=== PATIENT | male | born 1960 | race Caucasian/White ===

== ENCOUNTER → 2017-09-07 | Outpatient (CLI) | payer OTHER ==
[~2017-09-07] MED LIST: ACET-2031 PO; CEP500 PO; CHOLESTEROL MED PO; ENOX100D7 SQ; FISH OIL1 CAP PO; HTN MED PO; IBU600 PO; LOR5 PO; LOSA25TA46 PO; MET500 PO; METF-420 PO; MON10 PO; MONT4TAB PO; MULT-1335 PO; SIM10 PO; SINGULAIR PO; SUMA50TA34 PO; UBID100C48 PO; UBID10CA8 PO; UBID50CA21 PO; UBIQ100C3 PO; VALS1TAB63 PO; VALS80TA7 PO; VIT C; WAR5 PO
== END ==
LOC: LAB 09:43
PROVIDERS: ATTEND Family Medicine
DX: R80.9 Proteinuria, unspecified (principal)
CPT/HCPCS: 36415; 82977; 84156

== ENCOUNTER 2018-02-17 08:43 | Emergency (ER) | payer OTHER ==
[~2018-02-17 08:43] MED LIST changes: -METF-420 PO; +METF-452 PO; -VALS80TA7 PO; +VALS80TA8 PO
--- NOTE | 2018-02-17 08:47 | ER Report ---
History and Physical Time Seen By MD: 08:47 HPI/ROS CHIEF COMPLAINT: Elevated blood sugar, hematuria HISTORY OF PRESENT ILLNESS: Patient is a 57-year-old male who presents to the emergency department for complaint of elevated blood sugars in the 300 range as well as red colored urine. Patient was with his over this past week and [place] the [place] near [place], patient admitted on Sunday he was having increasing frequency of urination, he did not notice any abnormal change in color but also was not being observant of this. He denied any dysuria or abdominal pain or flank pain. There is also no history of fevers. Over Sunday and the frequency seemed to improve they arrived back to [place] on Sunday and they noticed that since that time his urine has been a dark red color. Again no associated dysuria or flank pain. Patient denies having similar symptoms in the past. They did do a lot of climbing and hiking. He isn't denies any chest pain or shortness of breath. He denies any headache or neck pain. Denies any recent sore throats or treatment for strep throat. REVIEW OF SYSTEMS: Constitutional: No fever, no chills. Eyes: No discharge. ENT: No sore throat. Cardiovascular: No chest pain, no palpitations. Respiratory: No cough, no shortness of breath. Gastrointestinal: No abdominal pain, no vomiting. No flank pain Genitourinary: Hematuria, increased urinary frequency no penile discharge Musculoskeletal: No back pain. Skin: No rashes. Neurological: No headache. Allergies: Coded Allergies: Penicillins (Verified Allergy, Mild, 02/17/18) codeine (Verified Allergy, Mild, 02/17/18) egg (Verified Allergy, Mild, 02/17/18) ibuprofen (Verified Allergy, Unknown, 02/17/18) Uncoded Allergies: MUSHROOM (Allergy, Mild, MILD, 12/11/11) Home Meds Active Scripts Ciprofloxacin Hcl (CIPRO) 500 Mg Tablet, 500 MG PO BID, #28 TAB 0 Refills Prov:IWLBUR SANFORD MD 02/17/18 Reported Medications Valsartan (Valsartan) 80 Mg Tablet, 0.5 TAB PO DAILY for Blood Pressure, #90 01/11/17 Ubiquinol (UBIQUINOL) 100 Mg Capsule, 100 MG PO DAILY, CAPSULE 02/16/15 Metformin Hcl (Glucophage) 500 Mg Tab, 500 MG PO BIDBS 04/26/12 Discontinued Scripts Sumatriptan Succinate (IMITREX) 50 Mg Tablet, 50 MG PO ONCE for 7 Days, #10 Prov:ISH MAHAJAN MD 01/11/17 Past Medical/Surgical History Past medical history for hypertension, diabetes, sleep apnea, pulmonary embolism status post knee surgery Hx Smoking: No Hx Substance Use Disorder: No Hx Alcohol Use: No Constitutional Vital Sign - Last 24 Hours 02/17/18 02/17/18 02/17/18 02/17/18 08:52 09:00 09:30 10:00 Temp 98.2 Pulse 62 56 56 56 Resp 20 B/P (MAP) 155/88 154/95 (114) 140/79 (99) 145/88 (107) Pulse Ox 92 93 94 93 O2 Delivery Room Air 02/17/18 10:30 Pulse 53 B/P (MAP) 144/85 (104) Pulse Ox 94 Physical Exam General/Constitutional: Patient is awake, alert, nontoxic and in no acute respiratory distress. Head: Normocephalic and atraumatic. Eyes: Conjunctival clear, Pupils are equal and reactive to light. Extraocular muscles are intact and symmetrical. Sclera are clear and anicteric. Ears:External canals are clear. Tympanic membranes are clear with normal landm arks and light reflex. Nares: No rhinorrhea or bleeding. Turbinates are pink and moist. Oropharyngeal: Mucous membranes are moist. There is no pharyngeal erythema or exudate. There are no palatal petechiae. Uvula is midline and symmetrical. Neck: Supple, no adenopathy. Cardiovascular: Heart is regular rate and rhythm without audible murmurs, rubs or gallops. Pulmonary: Lungs are clear to auscultation bilaterally. There are no wheezes, rales, or rhonchi. Chest rise is symmetrical Abdomen: Protuberent, Soft, nontender, no guarding or peritoneal signs. Extremities: No gross deformities, No peripheral cyanosis. Able to move all 4 extremities. Neuro: Alert and oriented X3, Patient has normal gait. Skin: No rashes, skin is warm dry and well perfused. Medical Decision Making Data Points Result Diagram: 02/17/18 0930 02/17/18 0930 Laboratory Hematology Test 02/17/18 08:50 02/17/18 09:30 Urine Color Red Urine Clarity Turbid Urine pH 6 pH (4.8-9.5) Urine Specific Burke 1.030 Urine Protein 100 mg/dL (NEGATIVE) Urine Glucose (UA) 1000 mg/dL (NEGATIVE) Urine Ketones 15 mg/dL (NEGATIVE) Urine Blood Large (NEGATIVE) Urine Nitrite Negative (NEGATIVE) Urine Bilirubin Negative (NEGATIVE) Urine Urobilinogen 0.2 mg/dL (0.2-1.9) Urine Leukocyte Esterase Negative (NEGATIVE) Urine RBC Tntc /HPF (0-2/HPF) Urine WBC 2-6 /HPF (0-5/HPF) Urine Squamous Epithelial Cells None /LPF (</=FEW) Urine Transitional Epithelial Cells /LPF (NONE-FEW) Urine Bacteria Many /HPF (NONE-FEW) Urine Mucus Rare /HPF (NONE-FEW) Red Blood Count 5.05 M/uL (4.00-5.60) Mean Corpuscular Volume 86.6 fL (80.0-96.0) Mean Corpuscular Hemoglobin 29.3 pg (26.0-33.0) Mean Corpuscular Hemoglobin Concent 33.8 g/dL (32.0-36.0) Red Cell Distribution Width 13.5 % (11.5-14.5) Mean Platelet Volume 9.0 fL (7.2-11.1) Neutrophils (%) (Auto) 67.0 % (39.4-72.5) Lymphocytes (%) (Auto) 23.1 % (17.6-49.6) Monocytes (%) (Auto) 5.6 % (4.1-12.4) Eosinophils (%) (Auto) 3.4 % (0.4-6.7) Basophils (%) (Auto) 0.9 % (0.3-1.4) Nucleated RBC Relative Count (auto) 0.2 /100WBC Neutrophils # (Auto) 3.9 K/uL (2.0-7.4) Lymphocytes # (Auto) 1.3 K/uL (1.3-3.6) Monocytes # (Auto) 0.3 K/uL (0.3-1.0) Eosinophils # (Auto) 0.2 K/uL (0.0-0.5) Basophils # (Auto) 0.1 K/uL (0.0-0.1) Nucleated RBC Absolute Count (auto) 0.01 K/uL Prothrombin Time 12.3 seconds (12.0-14.4) Prothromb Time International Ratio 0.91 Activated Partial Thromboplast Time 25 seconds (23-35) Sodium Level 136 mmol/L (137-145) Potassium Level 4.1 mmol/L (3.5-5.0) Chloride Level 101 mmol/L (98-107) Carbon Dioxide Level 25 mmol/L (22-30) Blood Urea Nitrogen 19 mg/dl (9-21) Creatinine 0.90 mg/dl (0.66-1.25) Glomerular Filtration Rate Calc > 60.0 Random Glucose 235 mg/dl (75-110) Calcium Level 8.5 mg/dl (8.4-10.2) Total Bilirubin 0.8 mg/dl (0.2-1.3) Aspartate Amino Transf (AST/SGOT) 21 U/L (0-35) Alanine Aminotransferase (ALT/SGPT) 33 U/L (0-56) Alkaline Phosphatase 44 U/L (0-126) Total Creatine Kinase 46 U/L (55-170) Total Protein 6.2 g/dl (6.3-8.2) Albumin 3.5 g/dl (3.5-5.0) Acetone, Qualitative Negative Chemistry Test 02/17/18 08:50 02/17/18 09:30 Urine Color Red Urine Clarity Turbid Urine pH 6 pH (4.8-9.5) Urine Specific Burke 1.030 Urine Protein 100 mg/dL (NEGATIVE) Urine Glucose (UA) 1000 mg/dL (NEGATIVE) Urine Ketones 15 mg/dL (NEGATIVE) Urine Blood Large (NEGATIVE) Urine Nitrite Negative (NEGATIVE) Urine Bilirubin Negative (NEGATIVE) Urine Urobilinogen 0.2 mg/dL (0.2-1.9) Urine Leukocyte Esterase Negative (NEGATIVE) Urine RBC Tntc /HPF (0-2/HPF) Urine WBC 2-6 /HPF (0-5/HPF) Urine Squamous Epithelial Cells None /LPF (</=FEW) Urine Transitional Epithelial Cells /LPF (NONE-FEW) Urine Bacteria Many /HPF (NONE-FEW) Urine Mucus Rare /HPF (NONE-FEW) White Blood Count 5.9 k/uL (4.5-11.0) Red Blood Count 5.05 M/uL (4.00-5.60) Hemoglobin 14.8 g/dL (14.0-18.0) Hematocrit 43.7 % (42.0-52.0) Mean Corpuscular Volume 86.6 fL (80.0-96.0) Mean Corpuscular Hemoglobin 29.3 pg (26.0-33.0) Mean Corpuscular Hemoglobin Concent 33.8 g/dL (32.0-36.0) Red Cell Distribution Width 13.5 % (11.5-14.5) Platelet Count 165 K/uL (150-450) Mean Platelet Volume 9.0 fL (7.2-11.1) Neutrophils (%) (Auto) 67.0 % (39.4-72.5) Lymphocytes (%) (Auto) 23.1 % (17.6-49.6) Monocytes (%) (Auto) 5.6 % (4.1-12.4) Eosinophils (%) (Auto) 3.4 % (0.4-6.7) Basophils (%) (Auto) 0.9 % (0.3-1.4) Nucleated RBC Relative Count (auto) 0.2 /100WBC Neutrophils # (Auto) 3.9 K/uL (2.0-7.4) Lymphocytes # (Auto) 1.3 K/uL (1.3-3.6) Monocytes # (Auto) 0.3 K/uL (0.3-1.0) Eosinophils # (Auto) 0.2 K/uL (0.0-0.5) Basophils # (Auto) 0.1 K/uL (0.0-0.1) Nucleated RBC Absolute Count (auto) 0.01 K/uL Prothrombin Time 12.3 seconds (12.0-14.4) Prothromb Time International Ratio 0.91 Activated Partial Thromboplast Time 25 seconds (23-35) Glomerular Filtration Rate Calc > 60.0 Calcium Level 8.5 mg/dl (8.4-10.2) Total Bilirubin 0.8 mg/dl (0.2-1.3) Aspartate Amino Transf (AST/SGOT) 21 U/L (0-35) Alanine Aminotransferase (ALT/SGPT) 33 U/L (0-56) Alkaline Phosphatase 44 U/L (0-126) Total Creatine Kinase 46 U/L (55-170) Total Protein 6.2 g/dl (6.3-8.2) Albumin 3.5 g/dl (3.5-5.0) Acetone, Qualitative Negative Coagulation Test 02/17/18 09:30 Prothrombin Time 12.3 seconds Prothromb Time International Ratio 0.91 Activated Partial Thromboplast Time 25 seconds Toxicology Test 02/17/18 09:30 Acetone, Qualitative Negative Urinalysis Test 02/17/18 08:50 Urine Color Red Urine Clarity Turbid Urine pH 6 pH (4.8-9.5) Urine Specific Burke 1.030 Urine Protein 100 mg/dL (NEGATIVE) Urine Glucose (UA) 1000 mg/dL (NEGATIVE) Urine Ketones 15 mg/dL (NEGATIVE) Urine Blood Large (NEGATIVE) Urine Nitrite Negative (NEGATIVE) Urine Bilirubin Negative (NEGATIVE) Urine Urobilinogen 0.2 mg/dL (0.2-1.9) Urine Leukocyte Esterase Negative (NEGATIVE) Urine RBC Tntc /HPF (0-2/HPF) Urine WBC 2-6 /HPF (0-5/HPF) Urine Squamous Epithelial Cells None /LPF (</=FEW) Urine Transitional Epithelial Cells /LPF (NONE-FEW) Urine Bacteria Many /HPF (NONE-FEW) Urine Mucus Rare /HPF (NONE-FEW) EKG/Imaging Imaging FACILITY: [facility] [place] PATIENT NAME: Cory Tierney : 1960 MR: [id number] V: [id number] EXAM DATE: ORDERING PHYSICIAN: WILBUR SANFORD TECHNOLOGIST: Location: [facility] Patient: Cory Tierney : 1960 Visit/Account:[id number] Date of Sevice: 02/17/2018 Technique: KIDNEYS HISTORY: hematuria Procedure: There has been satisfactory grayscale, color and Doppler ultrasonic evaluation of the kidneys and bladder. Comparison: None. Findings: The right kidney is normal in size, contour and echogenicity; it measures 11.4 cm x 6.1 cm x 4.7 cm in its sagittal, transverse and AP dimensions. No evidence of hydronephrosis. The left kidney is normal in size, contour and echogenicity; it measures 12.0 cm x 6 cm x 5.2 cm in its sagittal, transverse and AP dimensions. No evidence of hydronephrosis. Bladder: Distended. Prevoid volume 72 mL and post void volume 10 mL. Bilateral ureteral jets are noted. Flow is identified in the aorta and IVC so far as visualized. IMPRESSION: 1. Normal renal ultrasound. Report Dictated By: Asa Saldaña DO at 02/17/2018 10:41 AM Report E-Signed By: Asa Saldaña DO at 02/17/2018 10:43 AM WSN:[id number] ED Course/Re-evaluation Clinical Indication for ER IV: Hydration, IV Access ED Course 02/17/2018 9:03:57 am After history and physical exam was performed differential diagnosis was formulated which includes but is not limited to nephritis, glomerulonephritis, hemorrhagic cystitis, myoglobinuria, rhabdomyolysis. Plan will be IV fluid bolus, we will check a postvoid residual. We will check CBC CMP, coags urinalysis and culture along with urine myoglobin. Suspect we will also order a renal ultrasound. Decision to Disposition Date: Feb 17, 2018 Decision to Disposition Time: 10:55 Depart Departure Latest Vital Signs Vital Signs Date Time Temp Pulse Resp B/P (MAP) Pulse Ox O2 Delivery O2 Flow Rate FiO2 02/17/18 10:30 53 144/85 (104) 94 02/17/18 08:52 98.2 20 Room Air Impression: Primary Impression: Hemorrhagic cystitis Condition: Improved Disposition: HOME OR SELF-CARE Referrals: CATHY ALVAREZ MD (PCP) 2 Days For a repeat urinalysis and for a prostate check New Scripts Ciprofloxacin Hcl (CIPRO) 500 Mg Tablet 500 MG PO BID, #28 TAB 0 Refills Prov: WILBUR SANFORD MD 02/17/18 Patient Instructions: Urinary Tract Infection in Children (GEN) WILBUR SANFORD MD Feb 17, 2018 08:47
[2018-02-17] MEDS ORDERED: NS(*) 0.9% 1000 ML BAG 1,000 ML IV ONE (09:30)
[2018-02-17] MEDS ORDERED: LEVOFLOXACIN 750 MG TAB PO ONE (09:30)
[2018-02-17 09:43] LABS: PLATELET COUNT, AUTOMATED 165 K/uL (150-450)
[2018-02-17 09:55] LABS: INR 0.91
[2018-02-17 10:30] VITALS: BP 144/85
[2018-02-17] MEDS ORDERED: CIPR-344 PO (10:31)
--- NOTE | 2018-02-17 10:47 | RADIOLOGY IMAGING REPORT ---
FACILITY: [facility] [place] PATIENT NAME: Cory Tierney : 1960 MR: [id number] V: [id number] EXAM DATE: ORDERING PHYSICIAN: WILBUR SANFORD TECHNOLOGIST: Location: [facility] Patient: Cory Tierney : 1960 Visit/Account:[id number] Date of Sevice: 02/17/2018 Technique: KIDNEYS HISTORY: hematuria Procedure: There has been satisfactory grayscale, color and Doppler ultrasonic evaluation of the kidn eys and bladder. Comparison: None. Findings: The right kidney is normal in size, contour and echogenicity; it measures 11.4 cm x 6.1 cm x 4.7 cm in its sagittal, transverse and AP dimensions. No evidence of hydronephrosis. The left kidney is normal in size, contour and echogenicity; it measures 12.0 cm x 6 cm x 5.2 cm in its sagittal, transverse and AP dimensions. No evidence of hydronephrosis. Bladder: Distended. Prevoid volume 72 mL and post void volume 10 mL. Bilateral ureteral jets are note d. Flow is identified in the aorta and IVC so far as visualized. IMPRESSION: 1. Normal renal ultrasound. Report Dictated By: Asa Saldaña DO at 02/17/2018 10:41 AM Report E-Signed By: Asa Saldaña DO at 02/17/2018 10:43 AM WSN:[id number]
== END 2018-02-17 11:13 | disposition home or self-care (01) ==
LOC: ER 09:07
DX: N30.91 Cystitis, unspecified with hematuria (principal)
CPT/HCPCS: 36415; 76705; 81001; 82009; 82550; 83036; 83874; 85025; 85610; 85730; 87088; 96360; 99284; J7030; 82040; 82247; 82310; 82374; 82435; 82565; 82947; 84075; 84132; 84155; 84295; 84450; 84460; 84520

== ENCOUNTER → 2018-08-02 | Outpatient (CLI) | payer OTHER ==
[~2018-08-02] MED LIST changes: +CIPR-344 PO
[2018-08-02 18:10] LABS: PLATELET COUNT, AUTOMATED 261 K/uL (150-450)
--- NOTE | 2018-08-02 18:59 | EKG ---
FACILITY: [facility] [place] PATIENT NAME: LAYLA PALACIOS : [id number] MR: [id number] V: [id number] EXAM DATE: ORDERING PHYSICIAN: CATHY HYMAN TECHNOLOGIST: Test Reason : pre-op Blood Pressure : / mmHG Vent. Rate : 053 BPM Atrial Rate : 053 BPM P-R Int : 152 ms QRS Dur : 088 ms QT Int : 428 ms P-R-T Axes : 019 054 044 degrees QTc Int : 401 ms Sinus bradycardia Artifact in V1-3 is difficult to strictly interpret Relatively unchanged from previous except the artifact Confirmed by JOSE FLOWERS ([id number]) on 08/02/2018 7:57:44 PM Referred By: Confirmed By:JOSE FLOWERS
== END ==
LOC: LAB 17:39
PROVIDERS: ATTEND Anesthesiology
DX: Z01.812 Encounter for preprocedural laboratory examination (principal); Z01.810 Encounter for preprocedural cardiovascular examination; S83.242A Other tear of medial meniscus, current injury, left knee, initial encounter; M94.262 Chondromalacia, left knee; R00.1 Bradycardia, unspecified
CPT/HCPCS: 36415; 82040; 82247; 82310; 82374; 82435; 82565; 82947; 83036; 84075; 84132; 84155; 84295; 84450; 84460; 84520; 85025; 93005

== ENCOUNTER 2018-08-12 13:16 | Emergency (ER) | payer OTHER ==
[2018-08-12] MEDS ORDERED: RIVA10TA PO (13:28)
--- NOTE | 2018-08-12 14:01 | ER Report ---
History and Physical Time Seen By MD: 13:36 Hx. of Stated Complaint: KNEE SURGERY ON SUNDAY, TODAY PAIN LEFT UPPER THIGH, HX OF BLOOD CLOTS, DENIES SOB HPI/ROS CHIEF COMPLAINT: Concerned about left DVT HISTORY OF PRESENT ILLNESS: Patient is a 58-year-old male who recently had laparoscopic left knee surgery this past Sunday here at [facility]. States that today he is been experiencing some left upper thigh pain. He has a history of multiple PE status post I prior knee surgery many years ago. He is not on chronic anticoagulation but was started on Xarelto postoperatively for 10 days. She denies any fevers or chills. Denies any immediate concerns or complaints with regard to his knee surgery. REVIEW OF SYSTEMS: Respiratory: No cough, no dyspnea. Cardiovascular: No chest pain, no palpitations. Gastrointestinal: No vomiting, no abdominal pain. Musculoskeletal: No back pain. After arriving Allergies: Coded Allergies: Penicillins (Verified Allergy, Mild, 08/12/18) codeine (Verified Allergy, Mild, 08/12/18) egg (Verified Allergy, Mild, 08/12/18) ibuprofen (Verified Allergy, Unknown, 08/12/18) Uncoded Allergies: MUSHROOM (Allergy, Mild, MILD, 12/11/11) Home Meds Reported Medications Rivaroxaban 10 MG (Xarelto 10 MG) 10 Mg Tablet, 1 TAB PO DAILY for 10 Days 08/12/18 Valsartan (Valsartan) 80 Mg Tablet, 0.5 TAB PO DAILY for Blood Pressure, #90 01/11/17 Ubiquinol (UBIQUINOL) 100 Mg Capsule, 100 MG PO DAILY, CAPSULE 02/16/15 Metformin Hcl (Glucophage) 500 Mg Tab, 1000 MG PO BIDBS 04/26/12 Discontinued Scripts Ciprofloxacin Hcl 500 Mg Tab (CIPRO 500 MG TAB) 500 Mg Tablet, 500 MG PO BID, #28 TAB 0 Refills Prov:WILBUR SANFORD MD 02/17/18 Past Medical/Surgical History History of type II diabetes, history of prior PE Hx Smoking: No Hx Substance Use Disorder: No Hx Alcohol Use: No Constitutional Vital Sign - Last 24 Hours 08/12/18 08/12/18 08/12/18 08/12/18 13:21 13:30 13:45 14:00 Temp 97.9 Pulse 82 81 80 83 Resp 16 B/P (MAP) 154/99 146/94 (111) 124/93 (103) Pulse Ox 91 90 93 93 O2 Delivery Room Air 08/12/18 08/12/18 08/12/18 14:15 14:30 14:45 Pulse 83 79 84 B/P (MAP) 154/98 (116) Pulse Ox 89 94 90 Physical Exam General Appearance: The patient is alert, has no immediate need for airway protection and no current signs of toxicity. Eyes: Pupils equal and round no injection. Respiratory: Chest is non tender, lungs are clear to auscultation. Cardiac: regular rate and rhythm Gastrointestinal: Abdomen is soft and non tender, no masses, bowel sounds normal. Musculoskeletal: Extremities have full range of motion and are non tender. Skin: No rashes or lesions. Surgical scars to the left knee appear clean dry and intact. The area and location of the patient's pain there is no palpable cord or erythema Medical Decision Making EKG/Imaging Imaging FACILITY: [facility] [place] PATIENT NAME: Cory Tierney : 1960 MR: [id number] V: [id number] EXAM DATE: ORDERING PHYSICIAN: WILBUR SANFORD TECHNOLOGIST: Location: [facility] [place] Patient: Cory Tierney : 1960 Visit/Account:[id number] Date of Sevice: 08/12/2018 VENOUS LOWER EXT LT HISTORY: post op; left thigh pain; hx PE , one week post meniscal surgery Concern for deep venous thrombus. COMPARISON: None. FINDINGS: Grayscale, duplex and color Doppler interrogation of the left lower extremity deep veins from common femoral vein to proximal calf was completed. Compression was performed where it was possible. The right common femoral vein was not evaluated. Common femoral vein - Negative. Femoral vein - Negative. Deep femoral vein - Negative. Popliteal vein - Negative. Visualized deep calf veins - Negative. Popliteal fossa: Negative. Contralateral (right) common femoral vein: Not imaged. Other: Prominent but upper normal size left inguinal lymph node is incidentally noted, short axis diameter just under 10 mm. IMPRESSION: No evidence of acute deep venous thrombosis in the visualized veins of the left lower extremity. Report Dictated By: Nam Coreas at 08/12/2018 2:37 PM Report E-Signed By: Nam Coreas at 08/12/2018 2:39 PM WSN:[id number] ED Course/Re-evaluation ED Course Plan at this time will be to perform ultrasound of the left lower extremity. Decision to Disposition Date: Aug 12, 2018 Decision to Disposition Time: 14:50 Depart Departure Latest Vital Signs Vital Signs Date Time Temp Pulse Resp B/P (MAP) Pulse Ox O2 Delivery O2 Flow Rate FiO2 08/12/18 14:45 84 90 08/12/18 14:30 154/98 (116) 08/12/18 13:21 97.9 16 Room Air Impression: Primary Impression: Muscle strain Condition: Improved Disposition: HOME OR SELF-CARE Referrals: CATHY ALVAREZ MD (PCP) Patient Instructions: Muscle Strain (ED) Additional Instructions: Continue your Xarelto as directed until completed WILBUR SANFORD MD Aug 12, 2018 14:01
[2018-08-12 14:30] VITALS: BP 154/98
--- NOTE | 2018-08-12 14:44 | RADIOLOGY IMAGING REPORT ---
FACILITY: [facility] [place] PATIENT NAME: Cory Tierney : 1960 MR: [id number] V: [id number] EXAM DATE: ORDERING PHYSICIAN: WILBUR SANFORD TECHNOLOGIST: Location: [facility] Patient: Cory Tierney : 1960 Visit/Account:[id number] Date of Sevice: 08/12/2018 US VENOUS LOWER EXT LT HISTORY: post op; left thigh pain; hx PE , one week post meniscal surgery Concern for deep venous t hrombus. COMPARISON: None. FINDINGS: Grayscale, duplex and color Doppler interrogation of the left lower extremity deep veins from common femoral vein to proximal calf was completed. Compression was performed where it was possible. The rig ht common femoral vein was not evaluated. Common femoral vein - Negative. Femoral vein - Negative. Deep femoral vein - Negative. Popliteal vein - Negative. Visualized deep calf veins - Negative. Popliteal fossa: Negative. Contralateral (right) common femoral vein: Not imaged. Other: Prominent but upper normal size left inguinal lymph node is incidentally noted, short axis ricco meter just under 10 mm. IMPRESSION: No evidence of acute deep venous thrombosis in the visualized veins of the left lower extremity. Report Dictated By: Nam Coreas at 08/12/2018 2:37 PM Report E-Signed By: Nam Coreas at 08/12/2018 2:39 PM WSN:[id number]
== END 2018-08-12 14:56 | disposition home or self-care (01) ==
LOC: ER 13:24
DX: S76.912A Strain of unspecified muscles, fascia and tendons at thigh level, left thigh, initial encounter (principal)
CPT/HCPCS: 99284